=== PATIENT | female | born 1985 | race African-American/Black ===

== ENCOUNTER 2016-07-05 07:42 | Emergency (ER) | payer OTHER ==
[~2016-07-05] VITALS: Ht 165.1 cm; Wt 66.0 kg
[~2016-07-05 07:42] MED LIST: METH10TA7; PREN1TAB19
[2016-07-05 07:46] VITALS: BP 123/75
[2016-07-05] MEDS ORDERED: IBUPROFEN 600MG TABLET PO ONE (09:45)
[2016-07-05] MEDS ORDERED: ACETAMINOPHEN 325MG TABLET PO ONE (10:00)
== END 2016-07-05 11:07 | disposition home or self-care (01) ==
LOC: ER 09:32
DX: S63.91XA Sprain of unspecified part of right wrist and hand, initial encounter (principal); I10 Essential (primary) hypertension; F17.210 Nicotine dependence, cigarettes, uncomplicated; Z79.899 Other long term (current) drug therapy; X58.XXXA Exposure to other specified factors, initial encounter; Y93.89 Activity, other specified; Y92.89 Other specified places as the place of occurrence of the external cause; Y99.8 Other external cause status
CPT/HCPCS: 73130; 81025; 99284; A4565

== ENCOUNTER 2017-06-30 11:54 | Emergency (ER) | payer OTHER ==
[~2017-06-30] VITALS: Ht 165.1 cm; Wt 66.0 kg
[2017-06-30] MEDS ORDERED: IBUPROFEN 600MG TABLET PO ONE (13:30)
[2017-06-30] MEDS ORDERED: ONDANSETRON 4MG ODT PO ONE (13:30)
[2017-06-30 13:52] LABS: CLARITY URINE CLEAR (CLEAR); COLOR URINE YELLOW (YELLOW); KETONES URINE NEGATIVE (NEGATIVE); LEUKOCYTE ESTERASE URINE NEGATIVE (NEGATIVE); NITRITE URINE NEGATIVE (NEGATIVE); OCCULT BLOOD URINE NEGATIVE (NEGATIVE); PH URINE 8.5 (4.5-8.0); PROTEIN URINE NEGATIVE (NEGATIVE); SPECIFIC GRAVITY URINE 1.015 (1.005-1.030); UROBILINOGEN URINE 0.2 E.U./dL (0.2-1.0)
[2017-06-30 13:52] LABS: BASOPHILS % 0.5 % (0.0-2.0); EOSINOPHILS % 2.1 % (0.0-5.0); HEMATOCRIT. 39.6 % (36.0-48.0); HEMOGLOBIN. 13.3 g/dL (12.0-16.0); LYMPHOCYTES % 37.5 % (20.0-50.0); MEAN CORPUSCULAR HEMOGLOBIN 29.2 pg (28.0-32.0); MEAN CORPUSCULAR VOLUME 87.1 fL (81.0-99.0); MEAN PLATELET VOLUME 9.1 fl (7.4-10.4); MONOCYTES % 5.8 % (2.0-8.0); NEUTROPHILS % 54.1 % (40.0-76.0); PLATELET 157 x1000/uL (130-400); RED BLOOD CELL COUNT 4.54 mill/uL (4.2-5.4); RED CELL DISTRIBUTION WIDTH 14.5 % (11.6-14.6)
[2017-06-30 13:56] LABS: CHLORIDE 106 mEq/L (98-107)
[2017-06-30 13:59] LABS: PARTIAL THROMBOPLASTIN TIME 27.5 sec (23.4-31.0); PROTHROMBIN TIME 10.7 sec (9.4-11.6)
[2017-06-30 15:12] VITALS: BP 136/82
[2017-06-30 15:30] LABS: HCG SCREEN NEGATIVE
== END 2017-06-30 15:18 | disposition home or self-care (01) ==
LOC: ER 13:18
DX: K42.9 Umbilical hernia without obstruction or gangrene (principal); I10 Essential (primary) hypertension; E05.90 Thyrotoxicosis, unspecified without thyrotoxic crisis or storm; F17.210 Nicotine dependence, cigarettes, uncomplicated; F12.90 Cannabis use, unspecified, uncomplicated; Z87.828 Personal history of other (healed) physical injury and trauma
CPT/HCPCS: 36415; 80053; 81003; 83690; 84703; 85025; 85610; 85730; 99284; Q0162

== ENCOUNTER 2017-07-27 09:04 | Emergency (ER) | payer OTHER ==
[~2017-07-27] VITALS: Ht 165.1 cm; Wt 68.0 kg
[2017-07-27] MEDS ORDERED: ALBUTEROL (0.083%) 2.5MG/3ML NEB HHN STA (10:37)
[2017-07-27 11:03] LABS: BASOPHILS % 0.5 % (0.0-2.0); HEMATOCRIT. 37.4 % (36.0-48.0); HEMOGLOBIN. 12.6 g/dL (12.0-16.0); LYMPHOCYTES % 28.9 % (20.0-50.0); MEAN CORPUSCULAR HEMOGLOBIN 29.1 pg (28.0-32.0); MEAN CORPUSCULAR VOLUME 86.3 fL (81.0-99.0); MEAN PLATELET VOLUME 8.6 fl (7.4-10.4); MONOCYTES % 6.4 % (2.0-8.0); NEUTROPHILS % 60.2 % (40.0-76.0); PLATELET 154 x1000/uL (130-400); RED BLOOD CELL COUNT 4.34 mill/uL (4.2-5.4); RED CELL DISTRIBUTION WIDTH 14.3 % (11.6-14.6)
[2017-07-27 11:09] LABS: CHLORIDE 111 mEq/L (98-107)
[2017-07-27 12:43] VITALS: BP 145/82
== END 2017-07-27 13:39 | disposition home or self-care (01) ==
LOC: ER 09:04 → CANBEDREQ 13:28 → ER 13:39
DX: J20.9 Acute bronchitis, unspecified (principal); J70.5 Respiratory conditions due to smoke inhalation; I10 Essential (primary) hypertension; E05.90 Thyrotoxicosis, unspecified without thyrotoxic crisis or storm; F17.200 Nicotine dependence, unspecified, uncomplicated; F12.10 Cannabis abuse, uncomplicated
CPT/HCPCS: 36415; 71045; 80053; 81025; 84484; 85025; 85379; 93005; 94640; 99285; J7611; Z7610

== ENCOUNTER 2017-08-03 16:41 | Emergency (ER) | payer OTHER ==
[~2017-08-03] VITALS: Ht 165.1 cm; Wt 66.0 kg
[2017-08-03] MEDS ORDERED: IBUPROFEN 600MG TABLET PO STA (18:22)
[2017-08-03 20:30] VITALS: BP 123/79
== END 2017-08-03 20:34 | disposition home or self-care (01) ==
LOC: ER 17:03
DX: M25.562 Pain in left knee (principal); R51 Headache; M54.5 Low back pain; V43.42XA Person boarding or alighting a car injured in collision with other type car, initial encounter; Y93.89 Activity, other specified; Y92.410 Unspecified street and highway as the place of occurrence of the external cause; I10 Essential (primary) hypertension; E05.90 Thyrotoxicosis, unspecified without thyrotoxic crisis or storm; Z79.899 Other long term (current) drug therapy
CPT/HCPCS: 70486; 72125; 72170; 73562; 81025; 99284

== ENCOUNTER 2017-11-10 13:35 | Emergency (ER) | payer OTHER ==
[~2017-11-10] VITALS: Ht 165.1 cm; Wt 59.0 kg
[2017-11-10] MEDS ORDERED: ALBUTEROL (0.083%) 2.5MG/3ML NEB HHN ONE (17:45)
[2017-11-10 18:51] LABS: HCG SCREEN NEGATIVE
[2017-11-10 19:42] VITALS: BP 124/84
== END 2017-11-10 19:45 | disposition home or self-care (01) ==
LOC: ER 13:35
DX: J06.9 Acute upper respiratory infection, unspecified (principal); E05.90 Thyrotoxicosis, unspecified without thyrotoxic crisis or storm; I10 Essential (primary) hypertension; E03.9 Hypothyroidism, unspecified; Z79.899 Other long term (current) drug therapy
CPT/HCPCS: 71045; 81025; 84703; 94640; 99285; J7611

== ENCOUNTER 2018-09-21 15:42 | Emergency (ER) | payer OTHER ==
[~2018-09-21] VITALS: Ht 165.1 cm; Wt 69.0 kg
[2018-09-21] MEDS ORDERED: SODIUM CHLORIDE 0.9% 1,000 ML IV ONE (17:08)
[2018-09-21 17:31] LABS: BASOPHILS % 0.5 % (0.0-2.0); EOSINOPHILS % 1.6 % (0.0-5.0); HEMATOCRIT. 38.7 % (36.0-48.0); HEMOGLOBIN. 13.1 g/dL (12.0-16.0); LYMPHOCYTES % 36.6 % (20.0-50.0); MEAN CORPUSCULAR HEMOGLOBIN 29.9 pg (28.0-32.0); MEAN CORPUSCULAR VOLUME 88.7 fL (81.0-99.0); MEAN PLATELET VOLUME 8.4 fl (7.4-10.4); MONOCYTES % 7.1 % (2.0-8.0); NEUTROPHILS % 54.2 % (40.0-76.0); PLATELET 155 x1000/uL (130-400); RED BLOOD CELL COUNT 4.37 mill/uL (4.2-5.4); RED CELL DISTRIBUTION WIDTH 14.4 % (11.6-14.6)
[2018-09-21 17:35] LABS: CHLORIDE 105 mEq/L (98-107)
[2018-09-21 17:43] LABS: CREATINE KINASE 72 IU/L (26-192); CREATINE KINASE MB FRACTION < 1.0 ng/mL (0.5-3.6)
[2018-09-21 17:48] LABS: T4 FREE 0.96 ng/dL (0.76-1.46)
[2018-09-21 17:50] LABS: HCG SCREEN NEGATIVE
[2018-09-21 18:57] LABS: *AMPHETAMINES SCREEN URINE NEGATIVE (NEGATIVE); *BARBITURATES SCREEN URINE NEGATIVE (NEGATIVE); *BENZODIAZEPINES SCREEN URINE NEGATIVE (NEGATIVE); *COCAINE SCREEN URINE NEGATIVE (NEGATIVE)
[2018-09-21 18:58] LABS: METHADONE URINE SCREEN NEGATIVE (NEGATIVE); OPIATES URINE SCREEN NEGATIVE (NEGATIVE); PHENCYCLIDINE URINE SCREEN NEGATIVE (NEGATIVE)
[2018-09-21 19:06] LABS: CANNABINOID URINE SCREEN PRESUMTIVE POSITIVE (NEGATIVE)
[2018-09-21] MEDS ORDERED: MECLIZINE 25MG TABLET PO ONE (19:15)
[2018-09-21] MEDS ORDERED: DEXAMETHASONE 10 MG/ML VIAL IV ONE (19:15)
[2018-09-21 19:32] VITALS: BP 116/70
== END 2018-09-21 20:04 | disposition home or self-care (01) ==
LOC: ER 15:42
DX: I10 Essential (primary) hypertension (principal); H53.8 Other visual disturbances; R42 Dizziness and giddiness; R53.83 Other fatigue; R53.81 Other malaise; E05.90 Thyrotoxicosis, unspecified without thyrotoxic crisis or storm; F17.200 Nicotine dependence, unspecified, uncomplicated; Z98.890 Other specified postprocedural states; Z79.899 Other long term (current) drug therapy
CPT/HCPCS: 36415; 70450; 71045; 80053; 80305; 81025; 82550; 82553; 83690; 83880; 84439; 84443; 84481; 84484; 84703; 85025; 93005; 96361; 96374; 99284; J1100; J7030; J8597

== ENCOUNTER 2018-10-25 15:19 | Emergency (ER) | payer OTHER ==
[~2018-10-25] VITALS: Ht 165.1 cm; Wt 72.0 kg
[2018-10-25 17:47] VITALS: BP 110/80
== END 2018-10-25 23:03 | disposition left against medical advice (07) ==
LOC: ER 15:19
DX: Z53.21 Procedure and treatment not carried out due to patient leaving prior to being seen by health care provider (principal)

== ENCOUNTER 2018-11-15 08:52 | Emergency (ER) | payer OTHER ==
[~2018-11-15] VITALS: Ht 165.1 cm; Wt 69.0 kg
[2018-11-15] MEDS ORDERED: ACETAMINOPHEN 325MG TABLET PO ONE (09:30)
[2018-11-15 09:44] LABS: BASOPHILS % 0.8 % (0.0-2.0); EOSINOPHILS % 3.7 % (0.0-5.0); HEMATOCRIT. 40.8 % (36.0-48.0); HEMOGLOBIN. 13.5 g/dL (12.0-16.0); LYMPHOCYTES % 40.4 % (20.0-50.0); MEAN CORPUSCULAR VOLUME 90.7 fL (81.0-99.0); MEAN PLATELET VOLUME 9.4 fl (7.4-10.4); MONOCYTES % 7.8 % (2.0-8.0); NEUTROPHILS % 47.3 % (40.0-76.0); PLATELET 168 x1000/uL (130-400); RED CELL DISTRIBUTION WIDTH 15.8 % (11.6-14.6)
[2018-11-15 09:48] LABS: CHLORIDE 108 mEq/L (98-107)
[2018-11-15 09:58] LABS: B-HCG QUANTITATIVE < 1 mIU/mL (<3)
[2018-11-15 10:06] LABS: CLARITY URINE TURBID (CLEAR); COLOR URINE RED (YELLOW); KETONES URINE 2+ (NEGATIVE); LEUKOCYTE ESTERASE URINE 3+ (NEGATIVE); NITRITE URINE POSITIVE (NEGATIVE); OCCULT BLOOD URINE 3+ (NEGATIVE); PROTEIN URINE 2+ (NEGATIVE)
[2018-11-15 11:00] VITALS: BP 109/79
== END 2018-11-15 11:23 | disposition home or self-care (01) ==
LOC: ER 08:52
DX: N93.9 Abnormal uterine and vaginal bleeding, unspecified (principal); N39.0 Urinary tract infection, site not specified; I10 Essential (primary) hypertension; E05.90 Thyrotoxicosis, unspecified without thyrotoxic crisis or storm; F17.210 Nicotine dependence, cigarettes, uncomplicated; Z98.890 Other specified postprocedural states
CPT/HCPCS: 36415; 76830; 76856; 81003; 81025; 84702; 99284

== ENCOUNTER 2018-11-20 09:32 | Emergency (ER) | payer OTHER ==
[~2018-11-20] VITALS: Ht 167.6 cm; Wt 66.0 kg
[2018-11-20] MEDS ORDERED: MORPHINE SULFATE 10 MG/ML CPJ IM ONE (11:00)
[2018-11-20] MEDS ORDERED: KETOROLAC 30MG/ML VIAL IM ONE (11:00)
[2018-11-20 13:57] VITALS: BP 126/87
== END 2018-11-20 14:01 | disposition home or self-care (01) ==
LOC: ER 09:53
DX: S20.211A Contusion of right front wall of thorax, initial encounter (principal); S60.221A Contusion of right hand, initial encounter; Y08.89XA Assault by other specified means, initial encounter; Y07.03 Male partner, perpetrator of maltreatment and neglect; Y93.89 Activity, other specified; Y92.018 Other place in single-family (private) house as the place of occurrence of the external cause
CPT/HCPCS: 71045; 71250; 73120; 74176; 81025; 96372; 99284; J1885; J2270

== ENCOUNTER 2019-02-01 16:18 | Emergency (ER) | payer OTHER ==
[~2019-02-01] VITALS: Ht 165.1 cm; Wt 67.0 kg
[2019-02-01] MEDS ORDERED: SODIUM CHLORIDE 0.9% 1,000 ML IV ONE (18:12)
[2019-02-01] MEDS ORDERED: ONDANSETRON HCL 4MG/2ML INJ IV ONE (18:15)
[2019-02-01 18:39] LABS: BASOPHILS % 0.8 % (0.0-2.0); EOSINOPHILS % 3.4 % (0.0-5.0); HEMATOCRIT. 40.2 % (36.0-48.0); HEMOGLOBIN. 13.6 g/dL (12.0-16.0); LYMPHOCYTES % 42.6 % (20.0-50.0); MEAN PLATELET VOLUME 8.8 fl (7.4-10.4); NEUTROPHILS % 46.2 % (40.0-76.0); PLATELET 157 x1000/uL (130-400); RED BLOOD CELL COUNT 4.52 mill/uL (4.2-5.4); RED CELL DISTRIBUTION WIDTH 14.6 % (11.6-14.6)
[2019-02-01 18:44] LABS: CHLORIDE 109 mEq/L (98-107); PROTHROMBIN TIME 10.3 sec (9.6-11.0)
[2019-02-01 18:55] LABS: B-HCG QUANTITATIVE 2 mIU/mL (<3)
[2019-02-01 20:30] VITALS: BP 118/75
== END 2019-02-01 20:38 | disposition home or self-care (01) ==
LOC: ER 16:50
DX: N93.9 Abnormal uterine and vaginal bleeding, unspecified (principal); F17.210 Nicotine dependence, cigarettes, uncomplicated; R42 Dizziness and giddiness; Z79.899 Other long term (current) drug therapy
CPT/HCPCS: 36415; 76801; 76817; 80053; 84702; 85025; 85610; 86850; 86900; 86901; 96361; 96374; 99284; 99406; J2405; J7030

== ENCOUNTER 2019-02-03 08:50 | Emergency (ER) | payer OTHER ==
[~2019-02-03] VITALS: Ht 165.1 cm; Wt 69.0 kg
[2019-02-03 10:19] LABS: CHLORIDE 109 mEq/L (98-107); EOSINOPHILS % 3.1 % (0.0-5.0); HEMATOCRIT. 39.3 % (36.0-48.0); HEMOGLOBIN. 13.2 g/dL (12.0-16.0); LYMPHOCYTES % 34.4 % (20.0-50.0); MEAN CORPUSCULAR VOLUME 89.1 fL (81.0-99.0); MEAN PLATELET VOLUME 8.9 fl (7.4-10.4); MONOCYTES % 6.2 % (2.0-8.0); NEUTROPHILS % 55.3 % (40.0-76.0); PLATELET 152 x1000/uL (130-400); RED CELL DISTRIBUTION WIDTH 14.7 % (11.6-14.6)
[2019-02-03 10:29] LABS: B-HCG QUANTITATIVE 2 mIU/mL (<3)
[2019-02-03 13:12] VITALS: BP 122/83
== END 2019-02-03 13:13 | disposition home or self-care (01) ==
LOC: ER 08:50
DX: O03.9 Complete or unspecified spontaneous abortion without complication (principal); Z3A.00 Weeks of gestation of pregnancy not specified
CPT/HCPCS: 36415; 76830; 76856; 80048; 84702; 99284

== ENCOUNTER 2019-05-02 12:51 | Emergency (ER) | payer OTHER ==
[~2019-05-02] VITALS: Ht 165.1 cm; Wt 69.0 kg
[2019-05-02] MEDS ORDERED: ONDANSETRON 4MG ODT PO ONE (15:00)
[2019-05-02] MEDS ORDERED: ACETAMINOPHEN 500MG TABLET PO ONE (15:00)
[2019-05-02 15:03] LABS: CLARITY URINE CLEAR (CLEAR); COLOR URINE YELLOW (YELLOW); KETONES URINE NEGATIVE (NEGATIVE); LEUKOCYTE ESTERASE URINE NEGATIVE (NEGATIVE); NITRITE URINE NEGATIVE (NEGATIVE); OCCULT BLOOD URINE NEGATIVE (NEGATIVE); PH URINE 6.5 (4.5-8.0); PROTEIN URINE NEGATIVE (NEGATIVE); SPECIFIC GRAVITY URINE 1.022 (1.005-1.030)
[2019-05-02 15:17] LABS: BASOPHILS % 0.6 % (0.0-2.0); EOSINOPHILS % 1.9 % (0.0-5.0); HEMATOCRIT. 40.5 % (36.0-48.0); HEMOGLOBIN. 13.6 g/dL (12.0-16.0); LYMPHOCYTES % 43.1 % (20.0-50.0); MEAN CORPUSCULAR HEMOGLOBIN 30.4 pg (28.0-32.0); MEAN CORPUSCULAR VOLUME 90.3 fL (81.0-99.0); MEAN PLATELET VOLUME 8.8 fl (7.4-10.4); MONOCYTES % 6.1 % (2.0-8.0); NEUTROPHILS % 48.3 % (40.0-76.0); PLATELET 155 x1000/uL (130-400); RED BLOOD CELL COUNT 4.49 mill/uL (4.2-5.4); RED CELL DISTRIBUTION WIDTH 14.7 % (11.6-14.6)
[2019-05-02 15:28] LABS: CHLORIDE 108 mEq/L (98-107)
[2019-05-02 15:43] LABS: PROTHROMBIN TIME 10.4 sec (9.6-11.0)
[2019-05-02 17:32] VITALS: BP 145/75
[2019-05-03] MEDS ORDERED: IOHEXOL-300 100 ML BOTTLE ONE (00:21)
== END 2019-05-02 17:35 | disposition home or self-care (01) ==
LOC: ER 12:51
DX: R10.84 Generalized abdominal pain (principal); R11.10 Vomiting, unspecified; I10 Essential (primary) hypertension; Z98.890 Other specified postprocedural states
CPT/HCPCS: 36415; 74177; 80053; 81003; 81025; 83690; 85025; 85610; 99285; Q0162; Q9967

== ENCOUNTER 2019-07-14 12:48 | Emergency (ER) | payer OTHER ==
[~2019-07-14] VITALS: Ht 167.6 cm; Wt 64.0 kg
[2019-07-14] MEDS ORDERED: KETOROLAC 30MG/ML VIAL IV STA (15:09)
[2019-07-14] MEDS ORDERED: SODIUM CHLORIDE 0.9% 1,000 ML IV ONE (15:09)
[2019-07-14 15:34] LABS: CLARITY URINE CLEAR (CLEAR); COLOR URINE DARK YELLOW (YELLOW); KETONES URINE 1+ (NEGATIVE); LEUKOCYTE ESTERASE URINE TRACE (NEGATIVE); NITRITE URINE NEGATIVE (NEGATIVE); OCCULT BLOOD URINE NEGATIVE (NEGATIVE); PROTEIN URINE TRACE (NEGATIVE); SPECIFIC GRAVITY URINE 1.029 (1.005-1.030)
[2019-07-14 15:48] LABS: BASOPHILS % 0.5 % (0.0-2.0); EOSINOPHILS % 0.9 % (0.0-5.0); HEMATOCRIT. 40.7 % (36.0-48.0); HEMOGLOBIN. 13.9 g/dL (12.0-16.0); LYMPHOCYTES % 31.5 % (20.0-50.0); MEAN CORPUSCULAR HEMOGLOBIN 31.1 pg (28.0-32.0); MEAN CORPUSCULAR VOLUME 91.3 fL (81.0-99.0); MEAN PLATELET VOLUME 8.8 fl (7.4-10.4); MONOCYTES % 5.5 % (2.0-8.0); NEUTROPHILS % 61.6 % (40.0-76.0); PLATELET 164 x1000/uL (130-400); RED BLOOD CELL COUNT 4.45 mill/uL (4.2-5.4); RED CELL DISTRIBUTION WIDTH 15.4 % (11.6-14.6)
[2019-07-14 15:54] LABS: CHLORIDE 109 mEq/L (98-107)
[2019-07-14 16:07] LABS: HCG SCREEN NEGATIVE
[2019-07-14 17:20] VITALS: BP 137/99
== END 2019-07-14 18:00 | disposition left against medical advice (07) ==
LOC: ER 12:48
DX: R10.33 Periumbilical pain (principal); I10 Essential (primary) hypertension; E05.90 Thyrotoxicosis, unspecified without thyrotoxic crisis or storm; Z98.890 Other specified postprocedural states; Z87.828 Personal history of other (healed) physical injury and trauma
CPT/HCPCS: 36415; 80053; 81003; 83690; 84703; 85025; 96361; 96374; 99283; J1885; J7030

== ENCOUNTER 2020-03-31 10:17 | Emergency (ER) | payer OTHER ==
[~2020-03-31] VITALS: Ht 165.1 cm; Wt 72.0 kg
[2020-03-31] MEDS ORDERED: ACETAMINOPHEN 325MG TABLET PO PRN (10:30)
[2020-03-31] MEDS ORDERED: ONDANSETRON 4MG ODT PO ONE (11:00)
[2020-03-31 11:08] LABS: CLARITY URINE CLOUDY (CLEAR); COLOR URINE YELLOW (YELLOW); KETONES URINE NEGATIVE (NEGATIVE); LEUKOCYTE ESTERASE URINE 2+ (NEGATIVE); NITRITE URINE NEGATIVE (NEGATIVE); OCCULT BLOOD URINE NEGATIVE (NEGATIVE); PH URINE 7.5 (4.5-8.0); PROTEIN URINE NEGATIVE (NEGATIVE)
[2020-03-31 13:04] LABS: BASOPHILS % 0.6 % (0.0-2.0); EOSINOPHILS % 1.3 % (0.0-5.0); HEMATOCRIT. 39.6 % (36.0-48.0); HEMOGLOBIN. 13.1 g/dL (12.0-16.0); LYMPHOCYTES % 29.8 % (20.0-50.0); MEAN CORPUSCULAR HEMOGLOBIN 29.6 pg (28.0-32.0); MEAN CORPUSCULAR VOLUME 89.4 fL (81.0-99.0); MEAN PLATELET VOLUME 8.5 fl (7.4-10.4); MONOCYTES % 6.2 % (2.0-8.0); NEUTROPHILS % 62.1 % (40.0-76.0); PLATELET 145 x1000/uL (130-400); RED BLOOD CELL COUNT 4.43 mill/uL (4.2-5.4); RED CELL DISTRIBUTION WIDTH 14.1 % (11.6-14.6)
[2020-03-31 13:06] LABS: CHLORIDE 102 mEq/L (98-107)
[2020-03-31 14:35] VITALS: BP 108/59
[2020-03-31 14:45] LABS: B-HCG QUANTITATIVE 41926 mIU/mL (<3)
== END 2020-03-31 15:05 | disposition home or self-care (01) ==
LOC: ER 10:17
DX: O20.0 Threatened abortion (principal); O23.41 Unspecified infection of urinary tract in pregnancy, first trimester; O98.811 Other maternal infectious and parasitic diseases complicating pregnancy, first trimester; O99.281 Endocrine, nutritional and metabolic diseases complicating pregnancy, first trimester; O16.1 Unspecified maternal hypertension, first trimester; Z3A.10 10 weeks gestation of pregnancy; Z98.890 Other specified postprocedural states
CPT/HCPCS: 36415; 76801; 76817; 80053; 81003; 81025; 84443; 84702; 85025; 86850; 86900; 86901; 87086; 93005; 99285; Q0162

== ENCOUNTER 2020-09-28 04:16 | Observation (INO) | payer MEDICAID ==
[~2020-09-28] VITALS: Ht 165.1 cm; Wt 81.6 kg
[2020-09-28] MEDS ORDERED: LACTATED RINGERS 1,000 ML IV SCH (06:00)
[2020-09-28 06:51] LABS: BASOPHILS % 0.5 % (0.0-2.0); EOSINOPHILS % 0.9 % (0.0-5.0); HEMATOCRIT. 32.8 % (36.0-48.0); HEMOGLOBIN. 11.1 g/dL (12.0-16.0); LYMPHOCYTES % 19.7 % (20.0-50.0); MEAN CORPUSCULAR HEMOGLOBIN 29.7 pg (28.0-32.0); MEAN CORPUSCULAR VOLUME 87.9 fL (81.0-99.0); MEAN PLATELET VOLUME 9.3 fl (7.4-10.4); MONOCYTES % 6.8 % (2.0-8.0); NEUTROPHILS % 72.1 % (40.0-76.0); PLATELET 181 x1000/uL (130-400); RED BLOOD CELL COUNT 3.73 mill/uL (4.2-5.4); RED CELL DISTRIBUTION WIDTH 14.6 % (11.6-14.6)
[2020-09-28 06:57] LABS: INR 0.9; PARTIAL THROMBOPLASTIN TIME 27.6 sec (23.4-31.0); PROTHROMBIN TIME 9.8 sec (9.6-11.0)
[2020-09-28 07:05] LABS: CLARITY URINE CLEAR (CLEAR); COLOR URINE YELLOW (YELLOW); KETONES URINE NEGATIVE (NEGATIVE); LEUKOCYTE ESTERASE URINE NEGATIVE (NEGATIVE); NITRITE URINE NEGATIVE (NEGATIVE); OCCULT BLOOD URINE NEGATIVE (NEGATIVE); PROTEIN URINE NEGATIVE (NEGATIVE); SPECIFIC GRAVITY URINE 1.007 (1.005-1.030); UROBILINOGEN URINE 0.2 E.U./dL (0.2-1.0)
[2020-09-28 07:25] LABS: HEPATITIS B SURFACE ANTIGEN NEGATIVE
[2020-09-28 07:28] LABS: OPIATES URINE SCREEN NEGATIVE (NEGATIVE)
[2020-09-28 07:29] LABS: *AMPHETAMINES SCREEN URINE NEGATIVE (NEGATIVE); CANNABINOID URINE SCREEN NEGATIVE (NEGATIVE); PHENCYCLIDINE URINE SCREEN NEGATIVE (NEGATIVE)
[2020-09-28 07:30] LABS: *BARBITURATES SCREEN URINE NEGATIVE (NEGATIVE); *BENZODIAZEPINES SCREEN URINE NEGATIVE (NEGATIVE); *COCAINE SCREEN URINE NEGATIVE (NEGATIVE); METHADONE URINE SCREEN NEGATIVE (NEGATIVE)
[2020-09-28] MEDS ORDERED: ROPIVACAINE HCL/PF EPIDURAL 200 ML EPI SCH (08:45)
== END 2020-09-28 12:25 | disposition home or self-care (01) ==
LOC: INTOOBSV 04:16 → OBSVTOIN 04:16 → 8 EST LDRP 04:16
PROVIDERS: ADMIT Obstetrics & Gynecology; ATTEND Obstetrics & Gynecology
DX: O26.893 Other specified pregnancy related conditions, third trimester (principal); R10.30 Lower abdominal pain, unspecified; O99.891 Other specified diseases and conditions complicating pregnancy; Z79.899 Other long term (current) drug therapy; Z3A.36 36 weeks gestation of pregnancy
CPT/HCPCS: 36415; 59025; 76805; 76818; 80305; 81003; 85025; 85610; 85730; 86592; 86703; 86762; 86850; 86900; 86901; 87340; 96360; 96361; G0378; 99281; J7120

== ENCOUNTER 2020-10-07 23:57 | Inpatient (IN) | payer MEDICAID, OTHER ==
[~2020-10-07] VITALS: Ht 165.1 cm; Wt 85.7 kg
[2020-10-08] MEDS ORDERED: PREN1TAB23 PO (00:58)
[2020-10-08] MEDS ORDERED: NALOXONE HCL 0.4 MG/ML 1ML VIAL IM PRN (01:00)
[2020-10-08] MEDS ORDERED: METHYLERGONOVINE MALEATE 0.2 MG/ML IM PRN (01:00)
[2020-10-08] MEDS: LACTATED RINGERS 1,000 ML IV SCH ×4 (01:22→22:51)
[2020-10-08 01:52] LABS: BASOPHILS % 0.7 % (0.0-2.0); EOSINOPHILS % 1.1 % (0.0-5.0); HEMATOCRIT. 31.6 % (36.0-48.0); HEMOGLOBIN. 10.7 g/dL (12.0-16.0); LYMPHOCYTES % 22.2 % (20.0-50.0); MEAN CORPUSCULAR HEMOGLOBIN 29.8 pg (28.0-32.0); MEAN CORPUSCULAR VOLUME 87.9 fL (81.0-99.0); MEAN PLATELET VOLUME 9.2 fl (7.4-10.4); PLATELET 168 x1000/uL (130-400); RED BLOOD CELL COUNT 3.59 mill/uL (4.2-5.4); RED CELL DISTRIBUTION WIDTH 14.8 % (11.6-14.6)
[2020-10-08 01:58] LABS: CLARITY URINE CLEAR (CLEAR); COLOR URINE YELLOW (YELLOW); KETONES URINE NEGATIVE (NEGATIVE); LEUKOCYTE ESTERASE URINE NEGATIVE (NEGATIVE); NITRITE URINE NEGATIVE (NEGATIVE); OCCULT BLOOD URINE NEGATIVE (NEGATIVE); PROTEIN URINE NEGATIVE (NEGATIVE); SPECIFIC GRAVITY URINE 1.014 (1.005-1.030); UROBILINOGEN URINE 0.2 E.U./dL (0.2-1.0)
[2020-10-08 02:11] LABS: INR 0.9; PARTIAL THROMBOPLASTIN TIME 26.8 sec (23.4-31.0); PROTHROMBIN TIME 9.6 sec (9.6-11.0)
[2020-10-08 02:14] LABS: METHADONE URINE SCREEN NEGATIVE (NEGATIVE); OPIATES URINE SCREEN NEGATIVE (NEGATIVE); PHENCYCLIDINE URINE SCREEN NEGATIVE (NEGATIVE)
[2020-10-08 02:15] LABS: *AMPHETAMINES SCREEN URINE NEGATIVE (NEGATIVE); *BARBITURATES SCREEN URINE NEGATIVE (NEGATIVE); *BENZODIAZEPINES SCREEN URINE NEGATIVE (NEGATIVE); *COCAINE SCREEN URINE NEGATIVE (NEGATIVE); CANNABINOID URINE SCREEN NEGATIVE (NEGATIVE)
[2020-10-08 02:35] LABS: HEPATITIS B SURFACE ANTIGEN NEGATIVE
[2020-10-08] MEDS: DEXT 5%/LR + PITOCIN 20UNITS/L 1,000 ML IV SCH (03:49)
[2020-10-08] MEDS ORDERED: MISOPROSTOL 100MCG TABLET VG SCH (09:15)
[2020-10-08] MEDS ORDERED: LIDOCAINE HCL 1% 20ML VIAL (Pyxis) INJ INFIL SCH (09:15)
[2020-10-08] MEDS ORDERED: CARBOPROST TROMETHAMINE 250 MCG/ML AMPUL IM PRN (09:15)
[2020-10-08] MEDS: BUTORPHANOL TARTRATE 2 MG/ML VIAL IV PRN ×2 (09:40→18:50)
[2020-10-08] MEDS ORDERED: ROPIVACAINE HCL/PF EPIDURAL 200 ML EPI ONE (22:31)
[2020-10-08] MEDS ORDERED: ONDANSETRON HCL 4MG/2ML INJ IV PRN (23:30)
[2020-10-09] MEDS ORDERED: ROPIVACAINE HCL/PF EPIDURAL 200 ML EP SCH (00:15)
[2020-10-09] MEDS: DEXT 5%/LR + PITOCIN 20UNITS/L 1,000 ML IV SCH ×3 (05:02→10:52)
[2020-10-09] MEDS: LACTATED RINGERS 1,000 ML IV SCH (05:03)
[2020-10-09] MEDS ORDERED: LANOLIN OINT 7GM TUBE TOP PRN (09:15)
[2020-10-09] MEDS ORDERED: RHO(D) IMMUNE GLOBULIN 300 MCG/SYR IM PRN (09:15)
[2020-10-09] MEDS ORDERED: BISACODYL 10MG SUPP PR PRN (09:15)
[2020-10-09] MEDS ORDERED: BENZOCAINE/LANOLIN/ALOE VERA SPRAY TOP PRN (09:15)
[2020-10-09] MEDS ORDERED: DEXT 5%/LR + PITOCIN 20UNITS/L 1,000 ML IV SCH (09:15)
[2020-10-09] MEDS ORDERED: GLYCERIN/WITCH HAZEL LEAF MEDICATED PAD TOP PRN (09:15)
[2020-10-09] MEDS ORDERED: IBUPROFEN 400MG TABLET PO PRN (09:15)
[2020-10-09] MEDS ORDERED: HEMORRHOIDAL SUPP PR PRN (09:15)
[2020-10-09] MEDS ORDERED: NON FORMULARY PATIENT HOME MED INJ ONE (10:00)
[2020-10-09] MEDS ORDERED: OXYTOCIN 10 UNITS/ML 1ML IM NR (10:15)
[2020-10-09] MEDS: IBUPROFEN 800MG TABLET PO PRN ×2 (10:51→21:02)
[2020-10-09 11:05] VITALS: BP 131/79
[2020-10-09] MEDS: MAGNESIUM/ALUMINUM HYDROXIDE/SIMETHICONE 30ML UDC PO SCH ×3 (12:30→21:00)
[2020-10-09] MEDS: SIMETHICONE 80MG TABLET CHEW PO SCH ×4 (13:00→21:02)
[2020-10-09] MEDS: ACETAMINOPHEN WITH CODEINE 300/30MG TABLET PO PRN ×2 (13:11→23:22)
[2020-10-09 16:20] VITALS: BP 116/81
[2020-10-09 20:00] VITALS: BP 115/80
[2020-10-09] MEDS ORDERED: DOCUSATE SODIUM 100MG CAPSULE PO SCH (21:00)
[2020-10-10 04:00] VITALS: BP 108/72
[2020-10-10] MEDS: IBUPROFEN 800MG TABLET PO PRN ×2 (04:22→13:27)
[2020-10-10 07:08] LABS: BASOPHILS % 0.2 % (0.0-2.0); EOSINOPHILS % 1.3 % (0.0-5.0); HEMATOCRIT. 29.1 % (36.0-48.0); HEMOGLOBIN. 9.7 g/dL (12.0-16.0); LYMPHOCYTES % 22.1 % (20.0-50.0); MEAN CORPUSCULAR HEMOGLOBIN 30.2 pg (28.0-32.0); MEAN CORPUSCULAR VOLUME 89.9 fL (81.0-99.0); MEAN PLATELET VOLUME 8.8 fl (7.4-10.4); MONOCYTES % 7.3 % (2.0-8.0); NEUTROPHILS % 69.1 % (40.0-76.0); PLATELET 172 x1000/uL (130-400); RED BLOOD CELL COUNT 3.23 mill/uL (4.2-5.4)
[2020-10-10] MEDS: FERROUS SULFATE 325MG TABLET PO SCH ×2 (07:30→12:30)
[2020-10-10] MEDS ORDERED: FENTANYL CITRATE/PF 50MCG/ML 2ML VIAL ONE (08:12)
[2020-10-10] MEDS ORDERED: PROPOFOL 200MG/20ML VIAL IV ONE (08:12)
[2020-10-10] MEDS ORDERED: ONDANSETRON HCL 4MG/2ML INJ ONE (08:17)
[2020-10-10] MEDS ORDERED: KETOROLAC 60MG/2ML VIAL IM ONE (08:17)
[2020-10-10] MEDS ORDERED: DEXAMETHASONE 4MG/ML 1ML VIAL ONE (08:17)
[2020-10-10] MEDS ORDERED: METOCLOPRAMIDE HCL 10MG/2ML VIAL ONE (08:17)
[2020-10-10] MEDS ORDERED: PRENATAL VIT/FE FUMARATE/FA TABLET PO SCH (09:00)
[2020-10-10] MEDS: ACETAMINOPHEN WITH CODEINE 300/30MG TABLET PO PRN (09:55)
[2020-10-10 10:00] VITALS: BP 133/88
[2020-10-10] MEDS ORDERED: NALOXONE HCL 0.4MG/ML VIAL IV PRN (10:45)
[2020-10-10] MEDS: HYDROMORPHONE HCL/PF 2MG/ML CPJ IV PRN ×4 (10:48→13:18)
[2020-10-10 11:15] VITALS: BP 124/86
[2020-10-10 12:15] VITALS: BP 128/77
[2020-10-10] MEDS: SIMETHICONE 80MG TABLET CHEW PO SCH (12:30)
[2020-10-10] MEDS: MAGNESIUM/ALUMINUM HYDROXIDE/SIMETHICONE 30ML UDC PO SCH (13:27)
[2020-10-10 13:47] VITALS: BP 130/80
== END 2020-10-10 19:30 | disposition home or self-care (01) | DRG 541 ==
LOC: OBSVTOIN 23:57 → 8 EST LDRP 23:57 → 8EST 10-09 10:54
PROVIDERS: ADMIT Obstetrics & Gynecology; ATTEND Obstetrics & Gynecology
PROC: 10E0XZZ Delivery of Products of Conception, External Approach (ICD-10-PCS; principal; 2020-10-09)
PROC: 3E0R3BZ Introduction of Anesthetic Agent into Spinal Canal, Percutaneous Approach (ICD-10-PCS; 2020-10-09)
PROC: 00HU33Z Insertion of Infusion Device into Spinal Canal, Percutaneous Approach (ICD-10-PCS; 2020-10-09)
PROC: 10907ZC Drainage of Amniotic Fluid, Therapeutic from Products of Conception, Via Natural or Artificial Opening (ICD-10-PCS; 2020-10-09)
PROC: 3E033VJ Introduction of Other Hormone into Peripheral Vein, Percutaneous Approach (ICD-10-PCS; 2020-10-09)
PROC: 0UB70ZZ Excision of Bilateral Fallopian Tubes, Open Approach (ICD-10-PCS; 2020-10-10)
DX: O75.89 Other specified complications of labor and delivery (principal); Z37.0 Single live birth; R77.2 Abnormality of alphafetoprotein; Z20.822 Contact with and (suspected) exposure to COVID-19; Z30.2 Encounter for sterilization; Z3A.38 38 weeks gestation of pregnancy
CPT/HCPCS: 36415; 80305; 81003; 84030; 85025; 86592; 86703; 86762; 86850; 86900; 87340; 87426; 88302; 99281; G0378; J0595; J1100; J1170; J1885; J2405; J2590; J2704; J2765; J2795; J3010; A4315

== ENCOUNTER 2021-02-12 19:59 | Emergency (ER) | payer OTHER ==
[~2021-02-12] VITALS: Ht 165.1 cm; Wt 81.0 kg
[2021-02-12 21:22] VITALS: BP 123/89
== END 2021-02-12 23:45 | disposition home or self-care (01) ==
LOC: ER 19:59
DX: U07.1 COVID-19 (principal); B34.9 Viral infection, unspecified; M54.50 Low back pain, unspecified; J02.9 Acute pharyngitis, unspecified; M79.10 Myalgia, unspecified site; R19.7 Diarrhea, unspecified; R50.9 Fever, unspecified; I10 Essential (primary) hypertension; Z98.51 Tubal ligation status; Z98.890 Other specified postprocedural states
CPT/HCPCS: 99283; C9803; U0003; U0005

== ENCOUNTER 2022-06-19 10:37 | Emergency (ER) | payer OTHER ==
[~2022-06-19] VITALS: Ht 165.1 cm; Wt 71.0 kg
[2022-06-19] MEDS ORDERED: ACETAMINOPHEN 325MG TABLET PO ONE (11:15)
[2022-06-19 11:20] LABS: BASOPHILS % 0.5 % (0.0-2.0); EOSINOPHILS % 2.3 % (0.0-5.0); HEMATOCRIT. 40.1 % (36.0-48.0); HEMOGLOBIN. 13.6 g/dL (12.0-16.0); LYMPHOCYTES % 23.1 % (20.0-50.0); MEAN CORPUSCULAR HEMOGLOBIN 30.2 pg (28.0-32.0); MEAN CORPUSCULAR VOLUME 89.1 fL (81.0-99.0); MEAN PLATELET VOLUME 8.5 fl (7.4-10.4); MONOCYTES % 6.4 % (2.0-8.0); NEUTROPHILS % 67.7 % (40.0-76.0); PLATELET 177 x1000/uL (130-400); RED CELL DISTRIBUTION WIDTH 14.7 % (11.6-14.6)
[2022-06-19 11:32] LABS: CHLORIDE 108 mEq/L (98-107)
[2022-06-19 12:05] LABS: CLARITY URINE CLEAR (CLEAR); COLOR URINE YELLOW (YELLOW); KETONES URINE NEGATIVE (NEGATIVE); LEUKOCYTE ESTERASE URINE NEGATIVE (NEGATIVE); NITRITE URINE NEGATIVE (NEGATIVE); OCCULT BLOOD URINE TRACE (NEGATIVE); PROTEIN URINE NEGATIVE (NEGATIVE); SPECIFIC GRAVITY URINE 1.019 (1.005-1.030)
[2022-06-19] MEDS ORDERED: FAMO-135 MT (14:09)
[2022-06-19] MEDS ORDERED: TOPUD MT (14:09)
[2022-06-19 14:24] VITALS: BP 132/93
== END 2022-06-19 14:26 | disposition home or self-care (01) ==
LOC: ER 10:37
DX: K29.70 Gastritis, unspecified, without bleeding (principal); I10 Essential (primary) hypertension; Z98.51 Tubal ligation status; Z98.890 Other specified postprocedural states; Z86.39 Personal history of other endocrine, nutritional and metabolic disease
CPT/HCPCS: 36415; 80053; 81003; 81025; 85025; 93005; 99284

== ENCOUNTER 2024-01-11 07:26 | Emergency (ER) | payer OTHER ==
[~2024-01-11] VITALS: Ht 165.1 cm; Wt 75.0 kg
[~2024-01-11 07:26] MED LIST changes: +FAMO-135 MT; -METH10TA7; +NAPR-1176 MT; -PREN1TAB19; +TOPUD MT
[2024-01-11 07:32] VITALS: O2SAT 100
[2024-01-11 08:30] VITALS: BP 123/87; PULSE 86; RESP 18; TEMP 36.66960; O2SAT 97
[2024-01-11] MEDS ORDERED: IBUP-2029 MT (08:37)
[2024-01-11] MEDS ORDERED: AMOX-494 MT (08:37)
[2024-01-11] MEDS: AMOXICILLIN 500MG CAPSULE PO ONE (08:48)
[2024-01-11] MEDS: IBUPROFEN 600MG TABLET PO ONE (08:48)
[2024-01-12] MEDS ORDERED: ALBU18HF2 IH (16:58)
[2024-01-12] MEDS ORDERED: GUAI-450 MT (17:00)
[2024-01-12] MEDS ORDERED: ONDA-239 PO (17:21)
== END 2024-01-11 09:05 | disposition home or self-care (01) ==
LOC: ER 07:26
DX: H66.91 Otitis media, unspecified, right ear (principal); J06.9 Acute upper respiratory infection, unspecified; Z98.890 Other specified postprocedural states
CPT/HCPCS: 99283

== ENCOUNTER 2024-01-12 15:26 | Emergency (ER) | payer OTHER ==
[~2024-01-12] VITALS: Ht 165.1 cm; Wt 62.0 kg
[~2024-01-12 15:26] MED LIST changes: +AMOX-494 MT; +IBUP-2029 MT
[2024-01-12 15:31] VITALS: O2SAT 99
[2024-01-12 16:13] LABS: CHLORIDE 103 mEq/L (98-107); POTASSIUM 3.4 mEq/L (3.5-5.1); SODIUM 139 mEq/L (136-145)
[2024-01-12 16:14] LABS: CALCIUM 9.7 mg/dL (8.7-10.4); CARBON DIOXIDE 25 mEq/L (21-32)
[2024-01-12 16:19] LABS: BASOPHILS % 0.3 % (0.0-2.0); CREATININE 0.7 mg/dL (0.6-1.0); EOSINOPHILS % 2.3 % (0.0-5.0); GLUCOSE 114 mg/dL (70-105); HEMATOCRIT. 40.1 % (36.0-48.0); HEMOGLOBIN. 13.1 g/dL (12.0-16.0); LYMPHOCYTES % 15.7 % (20.0-50.0); MEAN CORPUSCULAR HGB CONC 32.8 g/dL (31.0-37.0); MEAN CORPUSCULAR VOLUME 88.4 fL (81.0-99.0); MEAN PLATELET VOLUME 8.5 fl (7.4-10.4); MONOCYTES % 6.3 % (2.0-8.0); NEUTROPHILS % 75.4 % (40.0-76.0); PLATELET 225 x1000/uL (130-400); RED BLOOD CELL COUNT 4.53 mill/uL (4.2-5.4); RED CELL DISTRIBUTION WIDTH 14.4 % (11.6-14.6); UREA NITROGEN BLOOD 6 mg/dL (9-23); WHITE BLOOD COUNT 6.4 x1000/uL (4.5-11.0)
[2024-01-12 16:30] LABS: HCG SCREEN NEGATIVE
[2024-01-12 16:45] VITALS: PULSE 101; RESP 20
[2024-01-12] MEDS: ALBUTEROL (0.083%) 2.5MG/3ML NEB HHN ONE (16:45)
[2024-01-12] MEDS: DEXAMETHASONE 10 MG/ML VIAL PO ONE (16:53)
[2024-01-12] MEDS ORDERED: ALBU18HF2 IH (16:58)
[2024-01-12] MEDS ORDERED: GUAI-450 MT (17:00)
[2024-01-12] MEDS ORDERED: ONDA-239 PO (17:21)
[2024-01-12 17:27] VITALS: BP 144/78; PULSE 100; RESP 20; TEMP 36.94740; O2SAT 99
== END 2024-01-12 17:36 | disposition home or self-care (01) ==
LOC: ER 15:26
DX: J45.909 Unspecified asthma, uncomplicated (principal); Z79.52 Long term (current) use of systemic steroids; Z79.1 Long term (current) use of non-steroidal anti-inflammatories (NSAID)
CPT/HCPCS: 80048; 84703; 85025; 36415; 71045; 94640; 93005; 98960; 99285; J1100; Z7610 ×2

== ENCOUNTER 2025-01-05 08:43 | Emergency (ER) | payer OTHER ==
[~2025-01-05] VITALS: Ht 165.1 cm; Wt 89.0 kg
[~2025-01-05 08:43] MED LIST changes: +ALBU18HF2 IH; +GUAI-450 MT; +IBUP-1455 MT; -IBUP-2029 MT; +ONDA-239 PO
[2025-01-05 08:53] VITALS: TEMP 36.7; O2SAT 100
[2025-01-05 09:29] VITALS: O2SAT 100
[2025-01-05 09:38] VITALS: BP 140/87; PULSE 89; RESP 18
[2025-01-05] MEDS: IBUPROFEN 400MG TABLET PO ONE (09:38)
[2025-01-05] MEDS ORDERED: IBUP-2028 PO (09:54)
== END 2025-01-05 10:06 | disposition home or self-care (01) ==
LOC: ER 08:43
DX: S90.31XA Contusion of right foot, initial encounter (principal); E03.9 Hypothyroidism, unspecified; Z98.890 Other specified postprocedural states; Z79.899 Other long term (current) drug therapy; X58.XXXA Exposure to other specified factors, initial encounter; Y93.01 Activity, walking, marching and hiking; Y92.89 Other specified places as the place of occurrence of the external cause; Y99.8 Other external cause status
CPT/HCPCS: 73630; 99283